=== PATIENT | female | born 2000 | race Caucasian/White ===

== ENCOUNTER 2018-11-09 15:20 | Emergency (ER) | payer BC ==
[2018-11-09 15:25] VITALS: BMI 16.6
[2018-11-09] MEDS ORDERED: SODIUM CHLORIDE 1,000 ML IV STA (16:14)
[2018-11-09] MEDS ORDERED: ACETAMINOPHEN 1000 MG/100 ML VIAL (NON FORMULARY) IVPB ONE (16:14)
[2018-11-09] MEDS ORDERED: ONDANSETRON 4 MG/2 ML VIAL IVPUSH ONE (16:14)
[2018-11-09] MEDS ORDERED: ONDANSETRON 4 MG/2 ML VIAL ONE (16:21)
[2018-11-09] MEDS ORDERED: ACETAMINOPHEN INJECTION 100 ML IVPB ONE (16:21)
[2018-11-09 17:09] LABS: BASO % 0.5 % (0-2.0); EOS % 0.2 % (0-4.5); HEMOGLOBIN 15.1 GM/dL (10.7-15.3); LYMPH % 21.6 % (8-40); MCH 30.6 pg (25.7-33.7); MCHC 34.4 g/dl (32.0-36.0); MEAN CELL VOLUME 88.9 fl (80-96); MEAN PLT VOLUME 10.4 fl (7.5-11.1); MONO % 2.9 % (3.8-10.2); NEUT % 74.8 % (42.8-82.8); PLATELET COUNT 168 K/MM3 (134-434); RBC 4.94 M/mm3 (3.60-5.2); RDW 12.6 % (11.6-15.6); WHITE BLOOD COUNT 11.8 K/mm3 (4.0-10.0)
[2018-11-09 17:12] LABS: URINE APPEARANCE SLCLOUDY; URINE BILIRUBIN NEGATIVE (<2.0 mg/dL); URINE COLOR YELLOW; URINE GLUCOSE (UA) NEGATIVE (NEGATIVE); URINE KETONE NEGATIVE (NEGATIVE); URINE LEUK ESTERASE 1+ (NEGATIVE); URINE NITRITE NEGATIVE (NEGATIVE); URINE PROTEIN 1+ (NEGATIVE); URINE UROBILINOGEN NEGATIVE mg/dL (0.2-1.0)
--- NOTE | 2018-11-09 17:14 | PDOC ---
History of Present Illness - General Chief Complaint: Pain, Acute Stated Complaint: SEVERE ABDOMINAL PAIN/DIFFICULTY BREATHING Time Seen by Provider: 11/09/18 16:10 History Source: Patient Exam Limitations: No Limitations - History of Present Illness Travel History: No Initial Comments: 11/09/18 17:11 18-year-old female with no past medical history presents to ED with complaints of left flank and left back pain x 3 days associated with chills and mild nausea. Patient has no bowel complaints, or GI history. Patient also denies rash or recent injury.Patient states had urinary frequency and burning so took [id number] medication since yesterday with no improvement 11/09/18 17:50 Timing/Duration: reports: constant Quality: reports: moderate, cramping, sharpness Abdominal Pain Onset Location: reports: flank Pain Radiation: reports: back Activities at Onset: reports: none Aggravating Factors: improves with: Movement Alleviating Factors: improves with: None Past History - Travel Traveled outside of the country in the last 30 days: No - Past Medical History Allergies/Adverse Reactions: Allergies Allergy/AdvReac Type Severity Reaction Status Date / Time No Known Allergies Allergy Verified 11/09/18 15:25 Home Medications: Ambulatory Orders Sulfamethoxazole/Trimethoprim [Bactrim Ds -] 1 tab PO BID #20 tablet 11/09/18 COPD: Yes - Suicide/Smoking/Psychosocial Hx Smoking Status: No Smoking History: Never smoked Number of Cigarettes Smoked Daily: 0 Patient Lives Alone: No Lives with/in: parents Review of Systems - Review of Systems Able to Perform ROS?: Yes Constitutional: No: Symptoms Reported HEENTM: No: Symptoms Reported Respiratory: No: Symptoms reported Cardiac (ROS): No: Symptoms Reported ABD/GI: Yes: Nausea, Abdominal cramping : Yes: Dysuria, Flank Pain Musculoskeletal: Yes: Back Pain Integumentary: No: Symptoms Reported *Physical Exam - Vital Signs Last Vital Signs Temp Pulse Resp BP Pulse Ox 97.6 F 81 18 107/62 99 11/09/18 15:22 11/09/18 15:22 11/09/18 15:22 11/09/18 15:22 11/09/18 15:22 - Physical Exam General Appearance: Yes: Nourished, Appropriately Dressed. No: Apparent Distress Neck: positive: Normal Thyroid Respiratory/Chest: positive: Lungs Clear, Normal Breath Sounds. negative: Respiratory Distress, Accessory Muscle Use Cardiovascular: positive: Regular Rhythm, Regular Rate. negative: Murmur Gastrointestinal/Abdominal: positive: Normal Bowel Sounds, Soft, Tenderness ( left flank). negative: Distended, Hernia, Mass Musculoskeletal: positive: CVA Tenderness (L) Extremity: positive: Normal Capillary Refill Integumentary: positive: Normal Color, Warm, Moist Neurologic: positive: Motor Strength 5/5 (ambulatory) Moderate Sedation - Procedure Monitoring Vital Signs: Procedure Monitoring Vital Signs Temperature 97.6 F 11/09/18 15:22 Pulse Rate 81 11/09/18 15:22 Respiratory Rate 18 11/09/18 15:22 Blood Pressure 107/62 11/09/18 15:22 O2 Sat by Pulse Oximetry (%) 99 11/09/18 15:22 ED Treatment Course - LABORATORY CBC & Chemistry Diagram: 11/09/18 17:00 11/09/18 17:00 - RADIOLOGY Radiology Studies Ordered: Category Date Time Status KIDNEY / RENAL US [US] Stat Ultrasound 11/09/18 16:14 Ordered Medical Decision Making - Medical Decision Making 11/09/18 17:13 Chief complaint: Left flank left back pain x3 days no other complaints. Exam: Patient left CVA and left flank tenderness on exam Plan: Patient ordered for labs, IV Tylenol, Zofran, IV fluids urinalysis urine and kidney ultrasound. 11/09/18 17:51 11/09/18 18:37 Laboratory Tests 11/09/18 11/09/18 11/09/18 17:00 17:00 17:00 WBC 11.8 H Hgb 15.1 Hct 44.0 Absolute Neuts (auto) 8.8 H Monocytes % 2.9 L Sodium 135 L Potassium 4.3 Chloride 104 Carbon Dioxide 24 Anion Gap 7 L BUN 14 Creatinine 0.7 Creat Clearance w eGFR > 60 Random Glucose 92 Calcium 9.3 Total Bilirubin 0.4 AST 16 ALT 18 Alkaline Phosphatase 81 Total Protein 8.6 H Albumin 4.6 Ur Specific Randall Urine Protein Urine Blood Ur Leukocyte Esterase Urine WBC (Auto) Urine RBC (Auto) Urine HCG, Qual Negative 11/09/18 17:00 WBC Hgb Hct Absolute Neuts (auto) Monocytes % Sodium Potassium Chloride Carbon Dioxide Anion Gap BUN Creatinine Creat Clearance w eGFR Random Glucose Calcium Total Bilirubin AST ALT Alkaline Phosphatase Total Protein Albumin Ur Specific Randall 1.020 Urine Protein 1+ H Urine Blood 1+ H Ur Leukocyte Esterase 1+ H Urine WBC (Auto) 41 Urine RBC (Auto) 34 Urine HCG, Qual Patient states feeling better after receiving medications and IV fluids. Will discharge patient home with Bactrim. Ultrasound reviewed by myself with no acute findings. Patient will be discharged home. *DC/Admit/Observation/Transfer Diagnosis at time of Disposition: Pyelonephritis - Discharge Dispostion Disposition: HOME Condition at time of disposition: Good - Prescriptions Prescriptions: Sulfamethoxazole/Trimethoprim [Bactrim Ds -] 1 tab PO BID #20 tablet - Referrals Referrals: Elyssa Parks MD [Primary Care Provider] - - Patient Instructions Printed Discharge Instructions: DI for Kidney Infection Additional Instructions: Please drink at least 2 L of water on a daily basis. Please take antibiotics as prescribed. May take Tylenol for discomfort. If symptoms worsen despite above recommendations please return to the emergency room. otherwise she will follow up with your doctor - Post Discharge Activity
[2018-11-09 17:43] LABS: EPI CELLS RARE /HPF (FEW); URINE BACTERIA MODERATE /hpf (NONE SEEN); URINE MUCUS FEW
[2018-11-09 17:46] LABS: ALBUMIN 4.6 g/dl (3.4-5.0); ALK PHOS 81 U/L (45-117); ANION GAP 7 MMOL/L (8-16); BILIRUBIN,TOTAL 0.4 mg/dL (0.2-1); BLOOD UREA NITROGEN 14 mg/dL (7-18); CALCIUM 9.3 mg/dL (8.5-10.1); CHLORIDE 104 mmol/L (98-107); CO2 24 mmol/L (21-32); CREATININE 0.7 mg/dL (0.55-1.3); GLUCOSE,RANDOM 92 mg/dL (74-106); POTASSIUM 4.3 mmol/L (3.5-5.1); SGOT/AST 16 U/L (15-37); SGPT/ALT 18 U/L (13-61); SODIUM 135 mmol/L (136-145); TOT PROT 8.6 g/dl (6.4-8.2)
[2018-11-09 18:45] VITALS: BP 110/65; PULSE 71; TEMP 97.9
== END 2018-11-09 19:07 | disposition home or self-care (01) ==
LOC: JER 15:20
PROC: 3E033NZ Introduction of Analgesics, Hypnotics, Sedatives into Peripheral Vein, Percutaneous Approach (ICD-10-PCS; principal; 2018-11-09)
PROC: 3E033GC Introduction of Other Therapeutic Substance into Peripheral Vein, Percutaneous Approach (ICD-10-PCS; 2018-11-09)
PROC: 3E0337Z Introduction of Electrolytic and Water Balance Substance into Peripheral Vein, Percutaneous Approach (ICD-10-PCS; 2018-11-09)
DX: N12 Tubulo-interstitial nephritis, not specified as acute or chronic (principal)
CPT/HCPCS: 36415; 76775-TC; 80053; 81003; 81015; 84703; 85025; 87086; 87186; 99283-25; J0131; J7030